=== PATIENT | female | born 1980 | race Hispanic/Latino ===

== ENCOUNTER 2019-03-02 11:00 | Emergency (ER) | payer BC ==
--- OUTSIDE RECORDS SUMMARY | 2019-03-02 11:03 | XMS REPORT ---
:1980 [facility] Address [address] [place] [address] Dr. Najera. [address] [place] [address] Care Team Providers Name Role Phone DR JOSE LUIS GALVAN Unavailable Unavailable Problems This patient has no known problems. Allergies, Adverse Reactions, Alerts This patient has no known allergies or adverse reactions. Medications This patient has no known medications. Encounters Start End Encounter Admission Attending Care Care Encounter Date/Time Date/Time Type Type Clinicians Facility Department ID 2017-06-09 2017-06-09 Out[facility] [id number] 04:54:00 07:37:00 JOSE LUIS Results Test Description Test Time Test Comments Text Results Atomic Results Result Comments URINE MONOCLONALFB 2017-06-30 10:18:00 Test Item Value Reference Range Comments PREG UR (test code=PGU) NEGATIVE NEGATIVE
--- NOTE | 2019-03-02 12:21 | RAD REPORT ---
EXAM DESCRIPTION: CT - Head Brain Wo Cont - 03/02/2019 12:13 pm CLINICAL HISTORY: blurry vision, general weakness;Dizziness Headache, blurry vision, drowsiness COMPARISON: <Comparisons> TECHNIQUE: All CT scans are performed using dose optimization technique as appropriate and may inclu de automated exposure control or mA/KV adjustment according to patient size. FINDINGS: No intracranial hemorrhage, hydrocephalus or extra-axial fluid collection.No areas of brai n edema or evidence of midline shift. The paranasal sinuses and mastoids are clear. The calvarium is intact. IMPRESSION: No acute intracranial abnormality.
--- NOTE | 2019-03-02 12:24 | RAD REPORT ---
EXAM DESCRIPTION: RAD - Chest Single View - 03/02/2019 12:17 pm CLINICAL HISTORY: general weakness Chest pain. COMPARISON: <Comparisons> FINDINGS: Portable technique limits examination quality. The lungs are grossly clear. The heart is normal in size. No displaced fractures. IMPRESSION: No acute intrathoracic process suspected.
[2019-03-02] MEDS ORDERED: ONDANSETRON 4 MG/2 ML VIAL ONE (12:51)
[2019-03-02] MEDS ORDERED: ASPIRIN 81 MG CHEWABLE TABLET ONE (12:51)
--- NOTE | 2019-03-02 13:30 | EKG ---
Test Date: 2019-03-02 Test Time: 13:02:48 Service Manager: MICHEL MEASUREMENT RESULTS: Intervals: Rate: 74 IL: 144 QRSD: 80 QT: 378 QTc: 419 [place]: P: 34 IL: 144 QRS: 46 T: 32 INTERPRETIVE STATEMENTS: Normal sinus rhythm Normal ECG Compared to ECG 06/06/2017 12:21:33 No significant changes Electronically Signed On 03-02-19 13:29:26 CDT by Andrea Rae
[2019-03-02 13:34] LABS: Absolute Lymphocytes (CBC) 2.3 K/uL (0.7-4.9); Absolute Monocytes 0.4 K/uL (0.1-1.3); Absolute Neutrophil 6.6 K/uL (1.8-8.0); Basophils % 0.5 % (0-1.3); Eosinophils % 1.7 % (0-4.4); Hematocrit 37.6 % (36.0-45.0); MPV 7.1 fL (7.6-11.3); Monocytes % 4.2 % (3.3-12.3); RBC Red Blood Cell Count 4.61 M/uL (3.86-4.86)
[2019-03-02 13:37] LABS: Protime INR 0.98
[2019-03-02 13:50] LABS: ALT/SGPT 31 U/L (12-78); AST/SGOT 21 U/L (15-37); Albumin 3.4 g/dL (3.4-5.0); Alkaline Phosphatase 99 U/L (45-117); BUN Blood Urea Nitrogen 9 mg/dL (7-18); Bicarbonate 28 mmol/L (21-32); Bilirubin Direct < 0.1 mg/dL (0-0.2); Bilirubin Total 0.2 mg/dL (0.2-1.0); Glucose Level 91 mg/dL (74-106); Magnesium 1.7 mg/dL (1.8-2.4); Potassium 3.3 mmol/L (3.5-5.1); Protein, Total 7.5 g/dL (6.4-8.2); Sodium Level 143 mmol/L (136-145); Troponin (Emerg Dept Use Only) < 0.02 ng/mL (0.0-0.045)
[2019-03-02 13:57] LABS: Urine Blood TRACE (NEG); Urine Glucose NEGATIVE (NEG); Urine Protein NEGATIVE (NEG); Urine Specific Gravity 1.025 (1.005-1.030)
[2019-03-02 14:07] LABS: Urine Bacteria >50 /HPF (<20); Urine Culture Reflex Order REFLEXED; Urine RBC <5 /HPF (NONE SEEN)
--- NOTE | 2019-03-02 14:34 | EDPHYS ---
Physician Documentation [facility] Name: Leana Chawla Age: 38 yrs Sex: Female : 1980 Arrival Date: 03/02/2019 Time: 11:05 Bed 13 Private MD: Unknown, Unknown ED Physician Kapil Choi HPI: 03/02 11:50 This 38 yrs old Female presents to ER via Ambulatory with complaints of cp Blurred Vision, Dizziness. 11:50 The patient presents with dizziness. Onset: The symptoms/episode began/occurred this cp morning. Context: occurred while the patient was driving. 11:50 Associated signs and symptoms: Pertinent positives: headache, nausea, double vision, cp Pertinent negatives: abdominal pain, chest pain, focal weakness, vomiting. Severity of symptoms: in the emergency department the symptoms are unchanged despite home interventions. 11:50 Patient's baseline: Neuro: alert and fully oriented, Motor: left-sided facial droop, cp Ambulation: walks without assistance, Speech: normal, The patient has a previous history of head injury. 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 - Social history:: Smoking status: Patient/guardian denies using tobacco. - Ebola Screening: : Patient negative for fever greater than or equal to 101.5 degrees Fahrenheit, and additional compatible Ebola Virus Disease symptoms. ROS: 12:00 Constitutional: Negative for body aches, chills, fever, poor PO intake. cp 12:00 Eyes: Positive for visual disturbance, Negative for discharge, pain, redness, vision cp loss. 12:00 ENT: Negative for drainage from ear(s), ear pain, sinus congestion, sinus pain, sore throat, difficulty swallowing, difficulty handling secretions. 12:00 Neck: Negative for pain with movement, pain at rest, stiffness, tenderness. 12:00 Cardiovascular: Negative for chest pain, edema, palpitations. 12:00 Respiratory: Negative for cough, shortness of breath, wheezing. 12:00 Abdomen/GI: Positive for nausea, diarrhea, Negative for abdominal pain, vomiting, constipation, black/tarry stool, rectal bleeding. 12:00 Back: Negative for pain at rest, pain with movement. 12:00 : Positive for urinary frequency. 12:00 Skin: Negative for rash. 12:00 Neuro: Positive for dizziness, headache, weakness, Negative for altered mental status, numbness, syncope, tingling. 12:00 All other systems are negative. Exam: 12:05 Constitutional: The patient appears in no acute distress, alert, awake, cp non-diaphoretic, non-toxic, well developed, well nourished. 12:05 Head/Face: Normocephalic, atraumatic. cp 12:05 Eyes: Periorbital structures: appear normal, Pupils: equal, round, and reactive to light and accomodation, Extraocular movements: intact throughout, Conjunctiva: normal, no exudate, no injection, Sclera: no appreciated abnormality, Lids and lashes: appear normal, bilaterally. 12:05 ENT: External ear(s): are unremarkable, Ear canal(s): are normal, clear, TM's: bulging, is not appreciated, bilaterally, dullness, bilaterally, erythema, is not appreciated, bilaterally, Nose: is normal, Mouth: Lips: moist, Oral mucosa: pink and intact, moist, Posterior pharynx: is normal, airway is patent, no erythema, no exudate, Voice: is normal. 12:05 Neck: ROM/movement: is normal, is supple, without pain, no range of motions limitations, no meningismus, no nuchal rigidity. 12:05 Chest/axilla: Inspection: normal, Palpation: is normal, no crepitus, no tenderness. 12:05 Cardiovascular: Rate: normal, Rhythm: regular, Heart sounds: murmur, not appreciated, Edema: is not appreciated, JVD: is not appreciated. 12:05 Respiratory: the patient does not display signs of respiratory distress, Respirations: normal, no use of accessory muscles, no retractions, no splinting, no tachypnea, labored breathing, is not present, Breath sounds: are clear throughout, no decreased breath sounds, no stridor, no wheezing. 12:05 Abdomen/GI: Inspection: abdomen appears normal, Bowel sounds: active, all quadrants, Palpation: abdomen is soft and non-tender, in all quadrants, rebound tenderness, is not appreciated, involuntary guarding, is not appreciated. 12:05 Back: pain, is absent, ROM is normal. 12:05 Skin: no rash present. 12:05 Neuro: Orientation: to person, place \T\ time. Mentation: is normal, Cerebellar function: is grossly normal, Motor: is normal, Sensation: is normal. 13:23 ECG was reviewed by the Attending Physician. cp Vital Signs: 11:15 BP 132 / 100; Pulse 85; Resp 17; Temp 98.2(TE); Pulse Ox 94% on R/A; Weight 77.11 kg rb1 (R); Height 5 ft. 2 in. (157.48 cm) (R); Pain 0/10; 11:54 BP 136 / 98 Supine; Pulse 84; Resp 16; Pulse Ox 96% ; mh5 11:56 BP 141 / 95 Sitting; Pulse 80; Resp 16; Pulse Ox 97% on R/A; mh5 11:58 BP 131 / 95 Standing; Pulse 93; Resp 17; Pulse Ox 100% ; mh5 12:50 BP 133 / 96; Pulse 65; Resp 16; Temp 98.3(O); Pulse Ox 100% on R/A; Pain 0/10; rb1 13:50 BP 128 / 94; Pulse 71; Resp 15; Temp 98.4(O); Pulse Ox 100% on R/A; Pain 0/10; rb1 14:45 BP 136 / 90; Pulse 74; Resp 16; Temp 98.0(O); Pulse Ox 100% on R/A; Pain 0/10; rb1 15:40 BP 127 / 92; Pulse 76; Resp 15; Temp 98.3(O); Pulse Ox 100% on R/A; Pain 0/10; rb1 11:15 Body Mass Index 31.09 (77.11 kg, 157.48 cm) rb1 Visual Acuity: 12:09 Left Eye Visual acuity 20/40, Pupil size 3 mm, ; Right Eye Visual acuity 20/40, Pupil rb1 size 3 mm, ; Without Lenses; MDM: 11:38 Patient medically screened. cp 14:32 Data reviewed: vital signs, nurses notes, lab test result(s), EKG, radiologic studies, cp CT scan, plain films. 14:32 Test interpretation: by ED physician or midlevel provider: ECG, plain radiologic cp studies. Counseling: I had a detailed discussion with the patient and/or guardian regarding: the historical points, exam findings, and any diagnostic results supporting the discharge/admit diagnosis, lab results, radiology results, to return to the emergency department if symptoms worsen or persist or if there are any questions or concerns that arise at home. Response to treatment: the patient's symptoms have mildly improved after treatment, and as a result, I will discharge patient. 03/02 11:53 Order name: Basic Metabolic Panel; Complete Time: 14:08 03/02 14:06 Interpretation: Normal except: K 3.3. 03/02 11:53 Order name: CBC with Diff; Complete Time: 14:08 03/02 11:53 Order name: LFT's; Complete Time: 14:08 03/02 11:53 Order name: Magnesium; Complete Time: 14:08 03/02 11:53 Order name: PT-INR; Complete Time: 14:08 03/02 11:53 Order name: Troponin (emerg Dept Use Only); Complete Time: 14:08 03/02 11:53 Order name: CT Head Brain wo Cont; Complete Time: 12:25 03/02 12:25 Interpretation: Report reviewed. 03/02 11:53 Order name: XRAY Chest (1 view); Complete Time: 12:25 cp 03/02 13:25 Order name: Urine Microscopic Only mh5 03/02 13:53 Order name: Urine Dipstick--Ancillary (enter results); Complete Time: 14:08 ms 03/02 13:53 Order name: Urine --Ancillary (enter results); Complete Time: 14:08 ms 03/02 14:11 Order name: Urine Culture EDMS 03/02 11:38 Order name: Orthostatics; Complete Time: 12:31 cp 03/02 11:38 Order name: Visual Acuity; Complete Time: 16:01 cp 03/02 11:53 Order name: EKG; Complete Time: 11:56 cp 03/02 11:53 Order name: Cardiac monitoring; Complete Time: 14:54 cp 03/02 11:53 Order name: EKG - Nurse/Tech; Complete Time: 14:55 cp 03/02 11:53 Order name: IV Saline Lock; Complete Time: 14:54 cp 03/02 11:53 Order name: Labs collected and sent; Complete Time: 14:54 cp 03/02 11:53 Order name: O2 Per Protocol; Complete Time: 12:31 cp 03/02 11:53 Order name: O2 Sat Monitoring; Complete Time: 12:31 cp 03/02 11:53 Order name: Urine Dipstick-Ancillary (obtain specimen); Complete Time: 13:27 cp 03/02 11:53 Order name: Urine Test (obtain specimen); Complete Time: 13:27 cp EC:23 Rhythm is regular. HI interval is normal. QRS interval is normal. QT interval is cp normal. T waves are Normal. Interpreted by me. Reviewed by me. Administered Medications: 12:35 Drug: Zofran 4 mg Route: IVP; Site: left antecubital; rb1 12:50 Follow up: Response: No adverse reaction; Nausea is decreased rb1 12:37 Drug: Aspirin 81 mg Route: PO; rb1 13:00 Follow up: Response: No adverse reaction rb1 14:40 Drug: Potassium Effervescent Tablet 50 mEq Route: PO; rb1 15:00 Follow up: Response: No adverse reaction rb1 14:40 Drug: Magnesium Sulfate 1 grams Route: IVPB; Infused Over: 1 hrs; Site: left rb1 antecubital; 15:57 Follow up: IV Status: Completed infusion rb1 14:40 Drug: Rocephin 1 grams Route: IV; Rate: bolus; Site: left antecubital; rb1 15:10 Follow up: IV Status: Completed infusion rb1 Disposition: 16:15 Chart complete. 03/03 12:49 Co-signature as Attending Physician, Kapil Choi MD. Disposition: 03/02/19 14:33 Discharged to Home. Impression: Urinary tract infection, site not specified, Weakness, Dizziness and giddiness. - Condition is Stable. - Discharge Instructions: Dizziness, Urinary Tract Infection, Adult, Weakness, [id number]-mr-[id number]. - Prescriptions for Keflex 500 mg Oral Capsule - take 1 capsule by ORAL route every 12 hours for 7 days; 14 capsule. Meclizine 25 mg Oral Tablet - take 1 tablet by ORAL route every 8 hours As needed; 30 tablet. Zofran 4 mg Oral Tablet - take 1 tablet by ORAL route every 12 hours As needed; 20 tablet. - Medication Reconciliation Form, Thank You Letter, Antibiotic Education, Prescription Opioid Use form. - Work release form (03/02/19 16:06). rb1 - Follow up: Private Physician; When: 2 - 3 days; Reason: Recheck today's complaints. - Problem is new. - Symptoms have improved. Signatures: Dispatcher [employer] EDZayra Tompkins RN RN iw Jules Rico PA PA Jsesie Mills RN RN rb1 Kapil Choi MD MD gs Corrections: (The following items were deleted from the chart) 03/02 16:01 11:53 Accucheck Blood Glucose ordered. cp rb1 16:02 14:33 03/02/2019 14:33 Discharged to Home. Impression: Urinary tract infection, site rb1 not specified; Weakness; Dizziness and giddiness. Condition is Stable. Forms are Medication Reconciliation Form, Thank You Letter, Antibiotic Education, Prescription Opioid Use. Follow up: Private Physician; When: 2 - 3 days; Reason: Recheck today's complaints. Problem is new. Symptoms have improved. cp
--- NOTE | 2019-03-02 14:34 | ER ---
Nurse's Notes [facility] Name: Leana Chawla Age: 38 yrs Sex: Female : 1980 Arrival Date: 03/02/2019 Time: 11:05 Bed 13 Private MD: Unknown, Unknown Diagnosis: Urinary tract infection, site not specified;Weakness;Dizziness and giddiness Presentation: 03/02 11:19 Presenting complaint: Patient states: has been feeling disoriented for a few days, also iw feels nauseous, shaky, has to use the bathroom "constantly", diarrhea and urinary frequency, also had an episode of double vision while driving today, also has been forgetting simple things like putting on her makeup (3 days ago) does not sleep well, only gets 30 minutes of sleep, takes zolpidem to help her sleep, also was feeling very emotional today, felt like crying. Transition of care: patient was not received from another setting of care. Onset of symptoms was February 27, 2019. Risk Assessment: Do you want to hurt yourself or someone else? Patient reports no desire to harm self or others. Initial Sepsis Screen: Does the patient meet any 2 criteria? No. Patient's initial sepsis screen is negative. Does the patient have a suspected source of infection? No. Patient's initial sepsis screen is negative. Care prior to arrival: None. 11:19 Method Of Arrival: Ambulatory iw 11:19 Acuity: SHIRA 3 iw Triage Assessment: 11:15 Pain: Denies pain. 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 - Social history:: Smoking status: Patient/guardian denies using tobacco. - Ebola Screening: : Patient negative for fever greater than or equal to 101.5 degrees Fahrenheit, and additional compatible Ebola Virus Disease symptoms. Screenin:15 Abuse screen: Denies threats or abuse. Nutritional screening: No deficits noted. rb1 Tuberculosis screening: No symptoms or risk factors identified. Fall Risk None identified. Assessment: 11:15 General: Appears in no apparent distress. comfortable, Behavior is calm, cooperative, rb1 Denies fever. Neuro: Level of Consciousness is awake, alert, obeys commands, Oriented to person, place, time, situation. Neuro: Reports Double vision. Cardiovascular: Capillary refill < 3 seconds is brisk in bilateral fingers. Respiratory: Airway is patent Respiratory effort is even, unlabored, Respiratory pattern is regular, symmetrical. GI: Reports diarrhea, nausea, since x 3 days. No diarrhea today. : Reports urinary frequency. Derm: Skin is pink, warm \\T\\ dry. 11:15 Reassessment: Pt. reports having a brain injury in the past on the right side of her rb1 head. She was told that the injury would make her be forgetful, be off balance, and have blurred vision. 12:06 Reassessment: Pt. went to CT. rb1 13:00 Reassessment: Patient appears in no apparent distress at this time. Patient and/or rb1 family updated on plan of care and expected duration. Pain level reassessed. Patient is alert, oriented x 3, equal unlabored respirations, skin warm/dry/pink. Pt. is playing on her phone. 14:00 Reassessment: Patient appears in no apparent distress at this time. No changes from rb1 previously documented assessment. 14:53 Reassessment: Discharge pending due to Magnesium infusing. rb1 15:00 Reassessment: Patient appears in no apparent distress at this time. Patient and/or rb1 family updated on plan of care and expected duration. Pain level reassessed. Patient is alert, oriented x 3, equal unlabored respirations, skin warm/dry/pink. Friend at bedside. 15:44 Reassessment: Patient appears in no apparent distress at this time. No changes from rb1 previously documented assessment. Vital Signs: 11:15 BP 132 / 100; Pulse 85; Resp 17; Temp 98.2(TE); Pulse Ox 94% on R/A; Weight 77.11 kg rb1 (R); Height 5 ft. 2 in. (157.48 cm) (R); Pain 0/10; 11:54 BP 136 / 98 Supine; Pulse 84; Resp 16; Pulse Ox 96% ; mh5 11:56 BP 141 / 95 Sitting; Pulse 80; Resp 16; Pulse Ox 97% on R/A; mh5 11:58 BP 131 / 95 Standing; Pulse 93; Resp 17; Pulse Ox 100% ; mh5 12:50 BP 133 / 96; Pulse 65; Resp 16; Temp 98.3(O); Pulse Ox 100% on R/A; Pain 0/10; rb1 13:50 BP 128 / 94; Pulse 71; Resp 15; Temp 98.4(O); Pulse Ox 100% on R/A; Pain 0/10; rb1 14:45 BP 136 / 90; Pulse 74; Resp 16; Temp 98.0(O); Pulse Ox 100% on R/A; Pain 0/10; rb1 15:40 BP 127 / 92; Pulse 76; Resp 15; Temp 98.3(O); Pulse Ox 100% on R/A; Pain 0/10; rb1 11:15 Body Mass Index 31.09 (77.11 kg, 157.48 cm) rb1 Visual Acuity: 12:09 Left Eye Visual acuity 20/40, Pupil size 3 mm, ; Right Eye Visual acuity 20/40, Pupil rb1 size 3 mm, ; Without Lenses; ED Course: 11:05 Patient arrived in ED. ag5 11:05 Unknown, Unknown is Private Physician. ag5 11:15 Patient has correct armband on for positive identification. Bed in low position. Call rb1 light in reach. Side rails up X 1. Pulse ox on. NIBP on. Warm blanket given. 11:15 Arm band placed on right wrist. rb1 11:20 Jessie Pickard, RN is Primary Nurse. rb1 11:23 Triage completed. iw 11:38 Jules Rico PA is PHCP. cp 11:38 aKpil Choi MD is Attending Physician. cp 12:10 CT completed. Patient tolerated procedure well. Patient moved to radiology. bq 12:15 CT Head Brain wo Cont In Process Unspecified. EDMS 12:19 XRAY Chest (1 view) In Process Unspecified. EDMS 13:16 Missed attempt(s): 22 gauge in left antecubital area. mh5 15:57 No provider procedures requiring assistance completed. IV discontinued, intact, rb1 bleeding controlled, No redness/swelling at site. Pressure dressing applied. Administered Medications: 12:35 Drug: Zofran 4 mg Route: IVP; Site: left antecubital; rb1 12:50 Follow up: Response: No adverse reaction; Nausea is decreased rb1 12:37 Drug: Aspirin 81 mg Route: PO; rb1 13:00 Follow up: Response: No adverse reaction rb1 14:40 Drug: Potassium Effervescent Tablet 50 mEq Route: PO; rb1 15:00 Follow up: Response: No adverse reaction rb1 14:40 Drug: Magnesium Sulfate 1 grams Route: IVPB; Infused Over: 1 hrs; Site: left rb1 antecubital; 15:57 Follow up: IV Status: Completed infusion rb1 14:40 Drug: Rocephin 1 grams Route: IV; Rate: bolus; Site: left antecubital; rb1 15:10 Follow up: IV Status: Completed infusion rb1 Outcome: 14:33 Discharge ordered by MD. cp 15:57 Discharged to home ambulatory, with friend. rb1 15:57 Condition: stable 15:57 Discharge instructions given to patient, Instructed on discharge instructions, follow up and referral plans. medication usage, Demonstrated understanding of instructions, follow-up care, medications, Prescriptions given X 3. 16:02 Patient left the ED. rb1 Signatures: Dispatcher [employer] EDMS Helen Eric Irene, Brigette Yang RN, RN RN ss Page, Corey, PA PA cp Barber, Rebecca, RN RN Stephanie Carvajal Ajare ag5 Corrections: (The following items were deleted from the chart) 03/05 10:00 09:59 Addendum: Culture Results: [facility]
[2019-03-02] MEDS ORDERED: CEFTRIAXONE/SWI 1gm 1 GM/10 ML SYR ONE (14:53)
[2019-03-02] MEDS ORDERED: POTASSIUM 25 MEQ EFFERV TAB ONE (14:53)
[2019-03-02] MEDS ORDERED: MAGNESIUM SULFATE 1 gm IVPB 1 GM/100 ML BAG IV ONE (14:53)
== END 2019-03-02 16:02 | disposition home or self-care (01) ==
LOC: ER 11:00
DX: N39.0 Urinary tract infection, site not specified (principal); R53.1 Weakness; R42 Dizziness and giddiness; F41.8 Other specified anxiety disorders; F32.9 Major depressive disorder, single episode, unspecified
CPT/HCPCS: 36415; 70450; 71045; 80048; 80076; 81003; 81015; 81025; 83735; 84484; 85025; 85610; 87077; 87086; 87088; 87186; 93005; 96365; 96368; 96375; 99284; J0696; J2405; J3475

== ENCOUNTER 2019-03-05 12:27 | Emergency (ER) | payer BC ==
--- OUTSIDE RECORDS SUMMARY | 2019-03-05 12:30 | XMS REPORT ---
:1980 [facility] Address [address] [place] [address] Dr. [address]. [address] [place] [address] Care Team Providers Name Role Phone DR JOSE LUIS GALVAN Unavailable Unavailable Problems This patient has no known problems. Allergies, Adverse Reactions, Alerts This patient has no known allergies or adverse reactions. Medications This patient has no known medications. Encounters Start End Encounter Admission Attending Care Care Encounter Date/Time Date/Time Type Type Clinicians Facility Department ID 2017-06-09 2017-06-09 Out[facility] [id number] 04:54:00 07:37:00 JOSE LUIS Results Test Description Test Time Test Comments Text Results Atomic Results Result Comments URINE MONOCLONALFB 2017-06-30 10:18:00 Test Item Value Reference Range Comments PREG UR (test code=PGU) NEGATIVE NEGATIVE
--- NOTE | 2019-03-05 13:19 | EDPHYS ---
Physician Documentation [facility] Name: Leana Chawla Age: 38 yrs Sex: Female : 1980 Arrival Date: 03/05/2019 Time: 12:30 Bed 5 Private MD: ED Physician Jules Ballesteros HPI: 03/05 13:13 This 38 yrs old Female presents to ER via Ambulatory with complaints of calderon Blurred Vision. 13:13 The patient presents with dizziness. Onset: The symptoms/episode began/occurred 5 calderon day(s) ago. Context: occurred. Modifying factors: The symptoms are alleviated by nothing, the symptoms are aggravated by nothing. Associated signs and symptoms: The patient has no apparent associated signs or symptoms. Patient's baseline: Neuro: alert and fully oriented. The patient has experienced a previous episode, last week. 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 - Social history:: Smoking status: Patient/guardian denies using tobacco. - Ebola Screening: : No symptoms or risks identified at this time. - Family history:: not pertinent. ROS: 13:13 Constitutional: Negative for fever, chills, and weight loss, Eyes: Negative for injury, calderon pain, redness, and discharge, ENT: Negative for injury, pain, and discharge, Neck: Negative for injury, pain, and swelling, Cardiovascular: Negative for chest pain, palpitations, and edema, Respiratory: Negative for shortness of breath, cough, wheezing, and pleuritic chest pain, Abdomen/GI: Negative for abdominal pain, nausea, vomiting, diarrhea, and constipation, Back: Negative for injury and pain, : Negative for injury, bleeding, discharge, and swelling, MS/Extremity: Negative for injury and deformity, Skin: Negative for injury, rash, and discoloration, Neuro: Negative for headache, weakness, numbness, tingling, and seizure, Psych: Negative for depression, anxiety, suicide ideation, homicidal ideation, and hallucinations, Allergy/Immunology: Negative for hives, rash, and allergies, Endocrine: Negative for neck swelling, polydipsia, polyuria, polyphagia, and marked weight changes, Hematologic/Lymphatic: Negative for swollen nodes, abnormal bleeding, and unusual bruising. Exam: 13:16 Constitutional: This is a well developed, well nourished patient who is awake, alert, calderon and in no acute distress. Head/Face: Normocephalic, atraumatic. Eyes: Pupils equal round and reactive to light, extra-ocular motions intact. Lids and lashes normal. Conjunctiva and sclera are non-icteric and not injected. Cornea within normal limits. Periorbital areas with no swelling, redness, or edema. ENT: Nares patent. No nasal discharge, no septal abnormalities noted. Tympanic membranes are normal and external auditory canals are clear. Oropharynx with no redness, swelling, or masses, exudates, or evidence of obstruction, uvula midline. Mucous membranes moist. Neck: Trachea midline, no thyromegaly or masses palpated, and no cervical lymphadenopathy. Supple, full range of motion without nuchal rigidity, or vertebral point tenderness. No Meningismus. Chest/axilla: Normal chest wall appearance and motion. Nontender with no deformity. No lesions are appreciated. Cardiovascular: Regular rate and rhythm with a normal S1 and S2. No gallops, murmurs, or rubs. Normal PMI, no JVD. No pulse deficits. Respiratory: Lungs have equal breath sounds bilaterally, clear to auscultation and percussion. No rales, rhonchi or wheezes noted. No increased work of breathing, no retractions or nasal flaring. Abdomen/GI: Soft, non-tender, with normal bowel sounds. No distension or tympany. No guarding or rebound. No evidence of tenderness throughout. Back: No spinal tenderness. No costovertebral tenderness. Full range of motion. Skin: Warm, dry with normal turgor. Normal color with no rashes, no lesions, and no evidence of cellulitis. MS/ Extremity: Pulses equal, no cyanosis. Neurovascular intact. Full, normal range of motion. Neuro: Awake and alert, GCS 15, oriented to person, place, time, and situation. Cranial nerves II-XII grossly intact. Motor strength 5/5 in all extremities. Sensory grossly intact. Cerebellar exam normal. Normal gait. Psych: Awake, alert, with orientation to person, place and time. Behavior, mood, and affect are within normal limits. Vital Signs: 12:35 BP 136 / 96; Pulse 81; Resp 18; Temp 97.5(O); Pulse Ox 97% on R/A; Weight 77.11 kg; hj Height 5 ft. 2 in. (157.48 cm); Pain 0/10; 13:50 BP 127 / 96 Supine; ms 13:50 BP 127 / 94 Sitting; ms 13:50 BP 126 / 90 Standing; ms 12:35 Body Mass Index 31.09 (77.11 kg, 157.48 cm) MDM: 13:04 Patient medically screened. [facility] 13:23 Data reviewed: vital signs, nurses notes, lab test result(s), EKG, radiologic studies. [facility] 03/05 13:30 Order name: EKG; Complete Time: 13:32 [facility] 03/05 13:30 Order name: EKG - Nurse/Tech; Complete Time: 13:37 [facility] 03/05 13:30 Order name: Orthostatics; Complete Time: 13:52 [facility] Administered Medications: No medications were administered Disposition: 03/05/19 13:18 Discharged to Home. Impression: Insomnia, Diplopia - non specific. - Condition is Stable. - Discharge Instructions: Diplopia, Insomnia. - Prescriptions for Restoril 7.5 mg Oral Capsule - take 2 capsule by ORAL route At bedtime As needed; 20 capsule. - Medication Reconciliation Form, Thank You Letter, Antibiotic Education, Prescription Opioid Use form. - Follow up: Private Physician; When: 2 - 3 days; Reason: Recheck today's complaints, Continuance of care, Re-evaluation by your physician. Follow up: Selvin Roth MD; When: 2 - 3 days; Reason: Recheck today's complaints, Re-evaluation by your physician. Follow up: Guanakito Gleason MD; When: 2 - 3 days; Reason: Recheck today's complaints, Re-evaluation by your physician. - Problem is new. - Symptoms have improved. Signatures: Jules Ballesteros MD MD cha Smirch, Shelby, RN RN Ramón Acevedo RN RN la1 Kenton Haynes RN RN Corrections: (The following items were deleted from the chart) 14:06 13:18 03/05/2019 13:18 Discharged to Home. Impression: Insomnia; Diplopia - non ss specific. Condition is Stable. Forms are Medication Reconciliation Form, Thank You Letter, Antibiotic Education, Prescription Opioid Use. Follow up: Private Physician; When: 2 - 3 days; Reason: Recheck today's complaints, Continuance of care, Re-evaluation by your physician. Follow up: Selvin Roth; When: 2 - 3 days; Reason: Recheck today's complaints, Re-evaluation by your physician. Follow up: Guanakito Gleason; When: 2 - 3 days; Reason: Recheck today's complaints, Re-evaluation by your physician. Problem is new. Symptoms have improved. calderon
--- NOTE | 2019-03-05 13:19 | ER ---
Nurse's Notes [facility] Name: Leana Chawla Age: 38 yrs Sex: Female : 1980 Arrival Date: 03/05/2019 Time: 12:30 Bed 5 Private MD: Diagnosis: Insomnia;Diplopia-non specific Presentation: 03/05 12:33 Presenting complaint: Patient states: i dont feel good, i feel disoriented and laurent seen double, this started maybe couple of days ago; i always tired and i cant sleep; denies fever and chills and reports nausea;. Transition of care: patient was not received from another setting of care. Onset of symptoms was March 05, 2019. Risk Assessment: Do you want to hurt yourself or someone else? Patient reports no desire to harm self or others. Initial Sepsis Screen: Does the patient meet any 2 criteria? No. Patient's initial sepsis screen is negative. Does the patient have a suspected source of infection? No. Patient's initial sepsis screen is negative. Care prior to arrival: None. 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 - Social history:: Smoking status: Patient/guardian denies using tobacco. - Ebola Screening: : No symptoms or risks identified at this time. - Family history:: not pertinent. Screenin:06 Abuse screen: Denies threats or abuse. Denies injuries from another. Nutritional la1 screening: No deficits noted. Tuberculosis screening: No symptoms or risk factors identified. Fall Risk None identified. Assessment: 13:05 General: Appears in no apparent distress. Behavior is calm, cooperative. Pain: Denies la1 pain. Neuro: Level of Consciousness is awake, alert, obeys commands, Oriented to person, place, time, situation, Pile Fabric Knitter are equal bilaterally Moves all extremities. Full function Gait is steady, Speech is normal, Facial symmetry appears normal, Pupils are PERRLA. Cardiovascular: Capillary refill < 3 seconds Patient's skin is warm and dry. Respiratory: Airway is patent Respiratory effort is even, unlabored, Respiratory pattern is regular, symmetrical. GI: No signs and/or symptoms were reported involving the gastrointestinal system. : No signs and/or symptoms were reported regarding the genitourinary system. 14:04 Reassessment: Patient appears in no apparent distress at this time. Patient is alert, ss oriented x 3, equal unlabored respirations, skin warm/dry/pink. Patient denies pain at this time. Vital Signs: 12:35 BP 136 / 96; Pulse 81; Resp 18; Temp 97.5(O); Pulse Ox 97% on R/A; Weight 77.11 kg; hj Height 5 ft. 2 in. (157.48 cm); Pain 0/10; 13:50 BP 127 / 96 Supine; ms 13:50 BP 127 / 94 Sitting; ms 13:50 BP 126 / 90 Standing; ms 12:35 Body Mass Index 31.09 (77.11 kg, 157.48 cm) ED Course: 12:30 Patient arrived in ED. rg4 12:34 Triage completed. hj 12:35 Arm band placed on right wrist. hj 12:55 Ramón Acevedo, LYNN is Primary Nurse. la1 13:04 Jules Ballesteros MD is Attending Physician. [facility] 13:06 Bed in low position. Call light in reach. la1 13:17 Selvin Roth MD is Referral Physician. [place] 13:18 Guanakito Gleason MD is Referral Physician. [place]der[place] 13:52 EKG done, by library technician. reviewed by Jules Ballesteros MD. dt2 14:04 No provider procedures requiring assistance completed. Patient did not have IV access ss during this emergency room visit. Administered Medications: No medications were administered Outcome: 13:18 Discharge ordered by . calderon 14:04 Discharged to home ambulatory. ss 14:04 Condition: good 14:04 Discharge instructions given to patient, family, Instructed on discharge instructions, follow up and referral plans. medication usage, Demonstrated understanding of instructions, follow-up care, medications, Prescriptions given X 1. 14:06 Patient left the ED. ss Signatures: Jules Ballesteros MD MD cha Solis, Maria ms Smirch, Shelby, RN RN Ramón Acevedo RN RN la1 Kenton Haynes RN RN Rosmery Mendoza rg4 Laine Ruffin dt2 Corrections: (The following items were deleted from the chart) 12:37 12:35 Pulse 81bpm; Resp 18bpm; Pulse Ox 97% RA; Temp 97.5F Oral; 77.11 kg; Height 5 ft. hj 2 in.; BMI: 31.0; Pain 0/10; hj
--- NOTE | 2019-03-05 16:28 | EKG ---
Test Date: 2019-03-05 Test Time: 13:40:54 Activities Concierge: BOBBY MEASUREMENT RESULTS: Intervals: Rate: 70 GA: 140 QRSD: 80 QT: 404 QTc: 436 [place]: P: 34 GA: 140 QRS: 52 T: 42 INTERPRETIVE STATEMENTS: Normal sinus rhythm Normal ECG Compared to ECG 03/02/2019 13:02:48 No significant changes Electronically Signed On 03-05-19 16:27:19 CDT by Quan Javier
== END 2019-03-05 14:06 | disposition home or self-care (01) ==
LOC: ER 12:27
DX: G47.00 Insomnia, unspecified (principal); H53.2 Diplopia; F41.9 Anxiety disorder, unspecified; F32.9 Major depressive disorder, single episode, unspecified
CPT/HCPCS: 93005; 99283

== ENCOUNTER 2019-05-27 10:19 | Emergency (ER) | payer BC ==
--- OUTSIDE RECORDS SUMMARY | 2019-05-27 10:23 | XMS REPORT ---
:1980 [facility] [address] [place] [address] Dr. [address]era. [address] [place] [address] Care Team Providers Name Role Phone DR JOSE LUIS GALVAN Unavailable Unavailable Problems This patient has no known problems. Allergies, Adverse Reactions, Alerts This patient has no known allergies or adverse reactions. Medications This patient has no known medications. Encounters Start End Encounter Admission Attending Care Care Encounter Date/Time Date/Time Type Type Clinicians Facility Department ID 2017-06-09 2017-06-09 Outpatient CAR [facility]EEFE [facility] [id number] 04:54:00 07:37:00 JOSE LUIS Results Test Description Test Time Test Comments Text Results Atomic Results Result Comments URINE MONOCLONALFB 2017-06-30 10:18:00 Test Item Value Reference Range Comments PREG UR (test code=PGU) NEGATIVE NEGATIVE
--- NOTE | 2019-05-27 11:10 | ER ---
Nurse's Notes [facility] Name: Leana Chawla Age: 39 yrs Sex: Female : 1980 Arrival Date: 05/27/2019 Time: 10:22 Bed 15 Private MD: Diagnosis: Other specified disorders of left external ear Presentation: 05/27 10:24 Presenting complaint: Patient states: "my left ear started bleeding today". Pt denies aa5 ear pain. Transition of care: patient was not received from another setting of care. Onset of symptoms was May 27, 2019. Risk Assessment: Do you want to hurt yourself or someone else? Patient reports no desire to harm self or others. Initial Sepsis Screen: Does the patient meet any 2 criteria? No. Patient's initial sepsis screen is negative. Does the patient have a suspected source of infection? No. Patient's initial sepsis screen is negative. Care prior to arrival: None. 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 - Social history:: Smoking status: Patient/guardian denies using tobacco. - Ebola Screening: : No symptoms or risks identified at this time. Screenin:32 Abuse screen: Denies threats or abuse. Nutritional screening: No deficits noted. la1 Tuberculosis screening: No symptoms or risk factors identified. Fall Risk None identified. Assessment: 10:32 General: Appears in no apparent distress. Behavior is calm, cooperative. Pain: Denies la1 pain. Neuro: Level of Consciousness is awake, alert, obeys commands. Cardiovascular: Patient's skin is warm and dry. Respiratory: Airway is patent Respiratory effort is even, unlabored. GI: No signs and/or symptoms were reported involving the gastrointestinal system. : No signs and/or symptoms were reported regarding the genitourinary system. EENT: Ear canal w/ bleeding noted from left ear. Vital Signs: 10:26 BP 123 / 75; Pulse 64; Resp 16 S; Temp 98.4(TE); Pulse Ox 99% on R/A; Weight 79.38 kg aa5 (R); Height 5 ft. 2 in. (157.48 cm) (R); Pain 0/10; 10:26 Body Mass Index 32.01 (79.38 kg, 157.48 cm) aa5 ED Course: 10:22 Patient arrived in ED. mr 10:24 Arm band placed on. aa5 10:25 Triage completed. aa5 10:30 Joseph Mosley PA is PHCP. [facility] 10:30 Edin Baron MD is Attending Physician. [facility] 10:32 Ramón Acevedo, RN is Primary Nurse. la1 10:33 Patient has correct armband on for positive identification. la1 11:15 No provider procedures requiring assistance completed. Patient did not have IV access la1 during this emergency room visit. Administered Medications: No medications were administered Outcome: 11:09 Discharge ordered by . [facility] 11:16 Discharged to home ambulatory. la1 11:16 Condition: stable 11:16 Discharge instructions given to patient, Instructed on discharge instructions, follow up and referral plans. Demonstrated understanding of instructions, follow-up care. 11:16 Patient left the ED. la1 Signatures: Joseph Mosley PA PA jmm RiveraYina mr ConradKiki RN RN [facility] Ramón Acevedo, LYNN RN la1
--- NOTE | 2019-05-27 11:10 | EDPHYS ---
Physician Documentation [facility] Name: Leana Chawla Age: 39 yrs Sex: Female : 1980 Arrival Date: 05/27/2019 Time: 10:22 Bed 15 Private MD: ED Physician Edin Baron HPI: 05/27 11:02 This 39 yrs old Female presents to ER via Ambulatory with complaints of Ear jmm bleeding. 11:02 The patient presents with drainage, that is bloody. Onset: The symptoms/episode jmm began/occurred today. Modifying factors: The symptoms are alleviated by nothing, the symptoms are aggravated by nothing. Associated signs and symptoms: Pertinent positives: sore throat, Pertinent negatives: fever. This is a 39 year old female that presents to the ED with complaints of blood from the left ear. Denies known injury. Denies ear ache. States she had a sore throat last week that has since resolved. . 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 - Social history:: Smoking status: Patient/guardian denies using tobacco. - Ebola Screening: : No symptoms or risks identified at this time. ROS: 11:02 Constitutional: Negative for fever, chills, and weight loss. jmm 11:02 Cardiovascular: Negative for chest pain, palpitations, and edema, Respiratory: Negative jmm for shortness of breath, cough, wheezing, and pleuritic chest pain. 11:02 ENT: Positive for drainage from ear(s). jmm 11:02 All other systems are negative. Exam: 11:02 Constitutional: This is a well developed, well nourished patient who is awake, alert, jmm and in no acute distress. Head/Face: atraumatic. Eyes: EOMI, no conjunctival erythema appreciated 11:02 Neck: Trachea midline, Supple Chest/axilla: Normal chest wall appearance and motion. Cardiovascular: Regular rate and rhythm. No edema appreciated Respiratory: Normal respirations, no respiratory distress appreciated Abdomen/GI: Non distended, soft Back: Normal ROM Skin: General appearance color normal MS/ Extremity: Moves all extremities, no obvious deformities appreciated, no edema noted to the lower extremities Neuro: Awake and alert, normal gait Psych: Behavior is normal, Mood is normal, Patient is cooperative and pleasant 11:02 ENT: Ear canal(s): bloody discharge, that is minimal, in the left canal, TM's: are normal. Vital Signs: 10:26 BP 123 / 75; Pulse 64; Resp 16 S; Temp 98.4(TE); Pulse Ox 99% on R/A; Weight 79.38 kg aa5 (R); Height 5 ft. 2 in. (157.48 cm) (R); Pain 0/10; 10:26 Body Mass Index 32.01 (79.38 kg, 157.48 cm) aa5 MDM: 11:02 Patient medically screened. [facility] 11:07 Data reviewed: vital signs, nurses notes. Counseling: I had a detailed discussion with karol the patient and/or guardian regarding: the historical points, exam findings, and any diagnostic results supporting the discharge/admit diagnosis, the need for outpatient follow up, to return to the emergency department if symptoms worsen or persist or if there are any questions or concerns that arise at home. ED course: Patient is alert and non toxic in appearance. TM does not appear perforated. I do not suspect OM. Appear due to irritation of the canal. . Administered Medications: No medications were administered Disposition: 15:46 Co-signature as Attending Physician, Edin Baron MD I agree with the assessment and kdr plan of care. Disposition: 05/27/19 11:09 Discharged to Home. Impression: Other specified disorders of left external ear. - Condition is Stable. - Discharge Instructions: Ear Drainage. - Work release form, Medication Reconciliation Form, Thank You Letter, Antibiotic Education, Prescription Opioid Use form. - Follow up: Private Physician; When: 2 - 3 days; Reason: Recheck today's complaints, Continuance of care, Re-evaluation by your physician. Signatures: Edin Baron MD MD kdr Mickail, Joel, PA PA jmm Calderon, Audri RN RN aa5 Ramón Acevedo RN RN la1 Corrections: (The following items were deleted from the chart) 11:16 11:09 05/27/2019 11:09 Discharged to Home. Impression: Other specified disorders of la1 left external ear. Condition is Stable. Forms are Medication Reconciliation Form, Thank You Letter, Antibiotic Education, Prescription Opioid Use. Follow up: Private Physician; When: 2 - 3 days; Reason: Recheck today's complaints, Continuance of care, Re-evaluation by your physician. karol
[2019-05-27 15:41] VITALS: BP 123/75; TEMP 98.4; O2SAT 99
== END 2019-05-27 11:16 | disposition home or self-care (01) ==
LOC: ER 10:19
DX: H61.892 Other specified disorders of left external ear (principal)
CPT/HCPCS: 99281

== ENCOUNTER 2019-12-13 11:40 | Emergency (ER) | payer BC ==
--- OUTSIDE RECORDS SUMMARY | 2019-12-13 11:43 | XMS REPORT ---
:1980 [facility] [address] [place] [address] Dr. [address]era. [address] [place] [address] Care Team Providers Name Role Phone DR JOSE LUIS GALVAN Unavailable Unavailable Problems This patient has no known problems. Allergies, Adverse Reactions, Alerts This patient has no known allergies or adverse reactions. Medications This patient has no known medications. Encounters Start End Encounter Admission Attending Care Care Encounter Date/Time Date/Time Type Type Clinicians Facility Department ID 2017-06-09 2017-06-09 Outpatient CAR [facility]EEFE [facility] [id number] 04:54:00 07:37:00 JOSE LUIS Results Test Description Test Time Test Comments Text Results Atomic Results Result Comments URINE MONOCLONALFB 2017-06-30 10:18:00 Test Item Value Reference Range Comments PREG UR (test code=PGU) NEGATIVE NEGATIVE
[2019-12-13 12:34] LABS: Urine Blood TRACE (NEG); Urine Glucose NEGATIVE (NEG); Urine Protein NEGATIVE (NEG); Urine Specific Gravity 1.025 (1.005-1.030)
[2019-12-13 12:40] LABS: Absolute Lymphocytes (CBC) 2.3 K/uL (0.7-4.9); Basophils % 0.6 % (0-1.3); Hematocrit 39.5 % (36.0-45.0); Lymphocytes % 22.4 % (15.3-44.8); RBC Red Blood Cell Count 4.82 M/uL (3.86-4.86)
[2019-12-13 12:47] LABS: Urine Bacteria <20 /HPF (<20); Urine Culture Reflex Order NOT NEEDED; Urine RBC <5 /HPF (NONE SEEN)
[2019-12-13 12:48] LABS: Urine Urothelial Cells <5 /HPF (NONE SEEN)
[2019-12-13 12:49] LABS: BUN Blood Urea Nitrogen 17 mg/dL (7-18); Bicarbonate 28 mmol/L (21-32); Glucose Level 85 mg/dL (74-106); Lipase 99 U/L (73-393); Potassium 3.2 mmol/L (3.5-5.1); Sodium Level 139 mmol/L (136-145)
[2019-12-13] MEDS ORDERED: NA CHLORIDE 0.9% 1,000 ML ONE (12:54)
[2019-12-13] MEDS ORDERED: KETOROLAC 30 MG/ML INJ ONE (12:54)
--- NOTE | 2019-12-13 14:30 | ER ---
Nurse's Notes [facility] Name: Leana Chawla Age: 39 yrs Sex: Female : 1980 Arrival Date: 12/13/2019 Time: 11:45 Bed 24 Private MD: Diagnosis: Low back pain;Unspecified abdominal pain;Hypokalemia Presentation: 12/12 11:57 Chief complaint: Patient states: 3 weeks has had severe left upper back pain , last iw night radiated to abdomen, +nausea, denies vomiting. Coronavirus screen: Patient denies fever greater than 100.4F, cough, shortness of breath, or difficulty breathing. Proceed with normal triage process. Ebola Screen: Patient negative for fever greater than or equal to 101.5 degrees Fahrenheit, and additional compatible Ebola Virus Disease symptoms Patient denies exposure to infectious person. Patient denies travel to an Ebola-affected area in the 21 days before illness onset. No symptoms or risks identified at this time. Initial Sepsis Screen: Does the patient meet any 2 criteria? No. Patient's initial sepsis screen is negative. Does the patient have a suspected source of infection? No. Patient's initial sepsis screen is negative. Risk Assessment: Do you want to hurt yourself or someone else? Patient reports no desire to harm self or others. 11:57 Method Of Arrival: Ambulatory iw 11:57 Acuity: SHIRA 3 iw 13:10 Onset of symptoms is unknown. 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 iw Historical: - Allergies: 11:59 No Known Allergies; iw - Home Meds: 12:02 baclofen 20 mg Oral tab nightly [Active]; cyclobenzaprine 5 mg Oral tab 1 tab 3 times iw per day [Active]; ergocalciferol (vitamin D2) 400 unit oral tab 1 tab once daily [Active]; escitalopram oxalate 20 mg oral tab 1 tab once daily [Active]; lorazepam 1 mg Oral tab nightly [Active]; levalbuterol HCl inhalation inhalation [Active]; lisinopril 20 mg Oral tab 1 tab once daily [Active]; pramipexole 1 mg oral tab [Active]; Qvar inhalation inhalation [Active]; Tramadol Oral [Active]; Ventolin HFA 90 mcg/actuation Nebulizer HFAA 1 puff every 4 hours [Active]; - PMHx: 11:59 Anxiety; 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 - Social history:: Smoking status: Patient denies any tobacco usage or history of. Screenin:15 Abuse screen: Denies threats or abuse. Nutritional screening: No deficits noted. vc Tuberculosis screening: No symptoms or risk factors identified. Fall Risk None identified. Assessment: 12:15 General: Appears in no apparent distress. uncomfortable, Behavior is calm, cooperative, vc appropriate for age. Pain: Complains of pain in right side of lumbar Pain radiates to RUQ. Neuro: Level of Consciousness is awake, alert, obeys commands, Oriented to person, place, time, situation, Appropriate for age. 12:15 Cardiovascular: Denies chest pain, shortness of breath, Patient's skin is warm and dry. vc Respiratory: Airway is patent Respiratory effort is even, unlabored, Respiratory pattern is regular, symmetrical. GI: No signs and/or symptoms were reported involving the gastrointestinal system. : No signs and/or symptoms were reported regarding the genitourinary system. EENT: No signs and/or symptoms were reported regarding the EENT system. Musculoskeletal: Circulation, motion, and sensation intact. Range of motion: intact in all extremities. 13:15 Reassessment: Patient and/or family updated on plan of care and expected duration. Pain vc level reassessed. Patient is alert, oriented x 3, equal unlabored respirations, skin warm/dry/pink. 14:15 Reassessment: Patient appears in no apparent distress at this time. Patient and/or vc family updated on plan of care and expected duration. Pain level reassessed. Patient is alert, oriented x 3, equal unlabored respirations, skin warm/dry/pink. 14:45 Reassessment: Patient appears in no apparent distress at this time. Patient and/or vc family updated on plan of care and expected duration. Pain level reassessed. Patient is alert, oriented x 3, equal unlabored respirations, skin warm/dry/pink. Patient states feeling better. Patient states symptoms have improved. Vital Signs: 11:57 BP 155 / 110; Pulse 79; Resp 16; Temp 98.8; Pulse Ox 100% on R/A; Weight 81.65 kg; iw Height 5 ft. 2 in. (157.48 cm); Pain 8/10; 12:45 BP 139 / 89; Pulse 79; Pulse Ox 99% on R/A; vc 13:45 BP 145 / 93; Pulse 69; Resp 17; Pulse Ox 99% on R/A; vc 11:57 Body Mass Index 32.92 (81.65 kg, 157.48 cm) ED Course: 11:45 Patient arrived in ED. fj1 11:49 Rocio Booker FNP-C is PHCP. snw 11:49 Edin Baron MD is Attending Physician. snw 11:58 Triage completed. iw 12:02 Patient has correct armband on for positive identification. iw 12:02 Arm band placed on. iw 12:09 Bhargavi Kamara RN is Primary Nurse. vc 12:10 Inserted saline lock: 20 gauge in right antecubital area, using aseptic technique. vc Blood collected. 12:30 Chem 7 Sent. vc 12:30 CBC with Diff Sent. vc 12:30 Lipase Sent. vc 15:09 No provider procedures requiring assistance completed. IV discontinued, intact, vc bleeding controlled, No redness/swelling at site. Pressure dressing applied. Administered Medications: 13:00 Drug: TORadol 30 mg {Note: Given IV per MD.} Route: IM; Site: Other; vc 14:38 Follow up: Response: No adverse reaction vc 13:01 Drug: NS 0.9% 1000 ml Route: IV; Rate: 1 bolus; Site: right antecubital; vc 14:00 Follow up: IV Status: Completed infusion; IV Intake: 1000ml vc 15:16 Drug: Potassium Chloride 40 mEq Route: PO; vc 15:16 Follow up: Response: No adverse reaction; Medication administered at discharge. vc Intake: 14:00 IV: 1000ml; Total: 1000ml. vc Outcome: 14:29 Discharge ordered by MD. snw 15:00 Discharged to home ambulatory. vc 15:00 Condition: good 15:00 Discharge instructions given to patient, Instructed on discharge instructions, follow up and referral plans. medication usage, Demonstrated understanding of instructions, follow-up care, medications. 15:00 Patient left the ED. vc Signatures: Rocio Booker FNP-C FNP-Csnw Zayra Dwyer, RN RN iw Bhargavi Kamara RN RN vc Marcelo Dickey fj1 Corrections: (The following items were deleted from the chart) 12:29 12:29 Inserted saline lock: 20 gauge in right antecubital area, using aseptic vc technique. Blood collected. vc 15:14 15:13 Patient left the ED. vc vc
--- NOTE | 2019-12-13 14:30 | EDPHYS ---
Physician Documentation [facility] Name: Leana Chawla Age: 39 yrs Sex: Female : 1980 Arrival Date: 12/13/2019 Time: 11:45 Bed 24 Private MD: ED Physician Edin Baron HPI: 12/12 15:08 This 39 yrs old Female presents to ER via Ambulatory with complaints of Back snw Pain. 15:08 The patient presents with pain that is acute, with no known mechanism of injury, that snw is chronic. Onset: The symptoms/episode began/occurred gradually. The pain radiates to the anterior aspect of left lateral abdomen and posterior aspect of left lateral abdomen. The problem was sustained from unknown cause. Severity of symptoms: At their worst the symptoms were moderate. The patient has experienced similar episodes in the past. It is unknown whether or not the patient has recently seen a physician. 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 iw Historical: - Allergies: :59 No Known Allergies; iw - Home Meds: 12:02 baclofen 20 mg Oral tab nightly [Active]; cyclobenzaprine 5 mg Oral tab 1 tab 3 times iw per day [Active]; ergocalciferol (vitamin D2) 400 unit oral tab 1 tab once daily [Active]; escitalopram oxalate 20 mg oral tab 1 tab once daily [Active]; lorazepam 1 mg Oral tab nightly [Active]; levalbuterol HCl inhalation inhalation [Active]; lisinopril 20 mg Oral tab 1 tab once daily [Active]; pramipexole 1 mg oral tab [Active]; Qvar inhalation inhalation [Active]; Tramadol Oral [Active]; Ventolin HFA 90 mcg/actuation Nebulizer HFAA 1 puff every 4 hours [Active]; - PMHx: 11:59 Anxiety; 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 - Social history:: Smoking status: Patient denies any tobacco usage or history of. ROS: 15:08 Constitutional: Negative for fever, chills, and weight loss, Eyes: Negative for injury, snw pain, redness, and discharge, ENT: Negative for injury, pain, and discharge, Neck: Negative for injury, pain, and swelling, Cardiovascular: Negative for chest pain, palpitations, and edema, Respiratory: Negative for shortness of breath, cough, wheezing, and pleuritic chest pain, : Negative for injury, bleeding, discharge, and swelling, MS/Extremity: Negative for injury and deformity, Skin: Negative for injury, rash, and discoloration, Neuro: Negative for headache, weakness, numbness, tingling, and seizure. 15:08 Abdomen/GI: Positive for abdominal pain, nausea, of the posterior aspect of left lateral abdomen and anterior aspect of left lateral abdomen. Exam: 15:07 Constitutional: This is a well developed, well nourished patient who is awake, alert, snw and in no acute distress. Head/Face: Normocephalic, atraumatic. Eyes: Pupils equal round and reactive to light, extra-ocular motions intact. Lids and lashes normal. Conjunctiva and sclera are non-icteric and not injected. Cornea within normal limits. Periorbital areas with no swelling, redness, or edema. ENT: Nares patent. No nasal discharge, no septal abnormalities noted. Tympanic membranes are normal and external auditory canals are clear. Oropharynx with no redness, swelling, or masses, exudates, or evidence of obstruction, uvula midline. Mucous membranes moist. Neck: Trachea midline, no thyromegaly or masses palpated, and no cervical lymphadenopathy. Supple, full range of motion without nuchal rigidity, or vertebral point tenderness. No Meningismus. Chest/axilla: Normal chest wall appearance and motion. Nontender with no deformity. No lesions are appreciated. Cardiovascular: Regular rate and rhythm with a normal S1 and S2. No gallops, murmurs, or rubs. Normal PMI, no JVD. No pulse deficits. Respiratory: Lungs have equal breath sounds bilaterally, clear to auscultation and percussion. No rales, rhonchi or wheezes noted. No increased work of breathing, no retractions or nasal flaring. Skin: Warm, dry with normal turgor. Normal color with no rashes, no lesions, and no evidence of cellulitis. MS/ Extremity: Pulses equal, no cyanosis. Neurovascular intact. Full, normal range of motion. Neuro: Awake and alert, GCS 15, oriented to person, place, time, and situation. Cranial nerves II-XII grossly intact. Motor strength 5/5 in all extremities. Sensory grossly intact. Cerebellar exam normal. Normal gait. Psych: Awake, alert, with orientation to person, place and time. Behavior, mood, and affect are within normal limits. 15:07 Abdomen/GI: Inspection: abdomen appears normal, Bowel sounds: normal, Palpation: abdomen is soft and non-tender. 15:07 Back: pain, that is moderate, of the left low back and left mid back, CVA tenderness, is absent, vertebral tenderness, is not appreciated, muscle spasm, is appreciated in the mid back area. Vital Signs: 11:57 BP 155 / 110; Pulse 79; Resp 16; Temp 98.8; Pulse Ox 100% on R/A; Weight 81.65 kg; iw Height 5 ft. 2 in. (157.48 cm); Pain 8/10; 12:45 BP 139 / 89; Pulse 79; Pulse Ox 99% on R/A; vc 13:45 BP 145 / 93; Pulse 69; Resp 17; Pulse Ox 99% on R/A; vc 11:57 Body Mass Index 32.92 (81.65 kg, 157.48 cm) iw MDM: 12:04 Patient medically screened. snw 15:10 Data reviewed: vital signs, nurses notes. Data interpreted: Pulse oximetry: on room air snw is 99 %. Interpretation: normal. Counseling: I had a detailed discussion with the patient and/or guardian regarding: the historical points, exam findings, and any diagnostic results supporting the discharge/admit diagnosis, the presence of at least one elevated blood pressure reading (>120/80) during this emergency department visit, lab results, the need for outpatient follow up, to return to the emergency department if symptoms worsen or persist or if there are any questions or concerns that arise at home. Special discussion: Based on the history and exam findings, there is no indication for further emergent testing or inpatient evaluation. I discussed with the patient/guardian the need to see the primary care provider for further evaluation of the symptoms. 12/12 12:07 Order name: Lipase; Complete Time: 12:57 snw 12/12 12:07 Order name: Urine Microscopic Only; Complete Time: 12:49 snw 12/12 12:07 Order name: CBC with Diff; Complete Time: 12:49 snw 12/12 12:07 Order name: Chem 7; Complete Time: 12:57 snw 12/12 12:31 Order name: Urine Dipstick--Ancillary (enter results) eb 12/12 12:31 Order name: Urine --Ancillary (enter results) eb 12/12 12:07 Order name: Urine Test (obtain specimen); Complete Time: 12:30 snw 12/12 12:35 Order name: Urine --Ancillary; Complete Time: 12:41 EDMS 12/12 12:35 Order name: Urine Dipstick-Ancillary; Complete Time: 12:41 EDMS 12/12 12:57 Order name: DD; Complete Time: 13:35 snw 12/12 12:07 Order name: Urine Dipstick-Ancillary (obtain specimen); Complete Time: 12:30 snw Administered Medications: 13:00 Drug: TORadol 30 mg {Note: Given IV per MD.} Route: IM; Site: Other; vc 14:38 Follow up: Response: No adverse reaction vc 13:01 Drug: NS 0.9% 1000 ml Route: IV; Rate: 1 bolus; Site: right antecubital; vc 14:00 Follow up: IV Status: Completed infusion; IV Intake: 1000ml vc 15:16 Drug: Potassium Chloride 40 mEq Route: PO; vc 15:16 Follow up: Response: No adverse reaction; Medication administered at discharge. vc Disposition: 18:45 Co-signature as Attending Physician, Edin Baron MD I agree with the assessment and kdr plan of care. Disposition: 12/13/19 14:29 Discharged to Home. Impression: Low back pain, Unspecified abdominal pain, Hypokalemia. - Condition is Stable. - Discharge Instructions: Back Pain, Adult, Potassium Content of Foods, Musculoskeletal Pain, Back Injury Prevention, [id number], Rehydration, Adult, Heat Therapy. - Prescriptions for orphenadrine citrate 100 mg Oral Tablet Sustained Release - take 1 tablet by ORAL route 2 times per day As needed; 20 tablet. - Medication Reconciliation Form, Thank You Letter, Antibiotic Education, Prescription Opioid Use form. - Follow up: Emergency Department; When: As needed; Reason: Worsening of condition. Follow up: Private Physician; When: 2 - 3 days; Reason: Recheck today's complaints, Continuance of care, Re-evaluation by your physician. Signatures: Dispatcher [employer] EDMS Edin Baron MD MD kdr Therrien, Shelly, PAULINO-C LEPIDOPTERIST-Hannahw Zayra Dwyer, RN RN iw Bhargavi Kamara RN RN vc Corrections: (The following items were deleted from the chart) 15:13 14:29 12/13/2019 14:29 Discharged to Home. Impression: Low back pain; Unspecified vc abdominal pain; Hypokalemia. Condition is Stable. Forms are Medication Reconciliation Form, Thank You Letter, Antibiotic Education, Prescription Opioid Use. Follow up: Emergency Department; When: As needed; Reason: Worsening of condition. Follow up: Private Physician; When: 2 - 3 days; Reason: Recheck today's complaints, Continuance of care, Re-evaluation by your physician. snw
[2019-12-13] MEDS ORDERED: POTASSIUM CL SA 10 MEQ TAB PO ONE (14:50)
[2019-12-13 15:23] VITALS: TEMP 98.8
[2019-12-13 15:25] VITALS: O2SAT 99
[2019-12-13 15:26] VITALS: BP 145/93
== END 2019-12-13 15:13 | disposition home or self-care (01) ==
LOC: ER 11:40
DX: R10.32 Left lower quadrant pain (principal); E87.6 Hypokalemia; I10 Essential (primary) hypertension; F32.9 Major depressive disorder, single episode, unspecified; F41.9 Anxiety disorder, unspecified
CPT/HCPCS: 85025; 80048; 36415; 81025; 85379; 83690; 96360; 96372; 99283; J7030; 81003; 81015

== ENCOUNTER 2020-11-20 13:15 | Emergency (ER) | payer BC, SELFPAY ==
--- OUTSIDE RECORDS SUMMARY | 2020-11-20 13:17 | XMS REPORT | Continuity of Care Document ---
:1980 Author Organization [facility] t Address [address] [place] [address] Dr. Najera. [address] [place] [address] Care Team Providers Name Role Phone DR MANDY Attending Clinician Unavailable DR MANDY Admitting Clinician Unavailable Problems Condition Condition Condition Status Onset Resolution Last Treating Co mments Source Name Details Category Date Date Treatment Clinician Date Obesity Obesity Problem Active [facility] Insomnia Insomnia Problem [facility] Gastroesop Gastroesop Problem Active [facility] da reflux Reflux Medical disease Disease Group Fatigue Fatigue Problem Active [facility] Unable to Unable to Problem Active [facility] Allergies, Adverse Reactions, Alerts Allergy Allergy Status Severity Reaction(s) Onset Inactive Treating Comm ents Source Name Type Date Date Clinician Zoloft Allergy Active [facility] Cymbalta Allergy Active [facility] Prozac Allergy Active Rash [facility] Viibryd Allergy Active [facility] Social History Smoking Status Start Date Stop Date Source Never Smoker [facility] Medications Ordered Filled Start Stop Current Ordering Indication Dosage Frequency Signature Comments Components Source Medication Medication Date Date Medication? Clinician (SIG) Name Name acetaminoph acetaminoph No acetaminop [facility] en 300 en 300 hen 300 da mg-codeine mg-codeine mg-codeine Medical 30 mg 30 mg 30 mg Group tablet TAKE tablet TAKE tablet 1 TAB BY 1 TAB BY TAKE 1 TAB MOUTH EVERY MOUTH EVERY BY MOUTH 6 HOURS 6 HOURS EVERY 6 NEEDED FOR NEEDED FOR HOURS PAIN DO NOT PAIN DO NOT NEEDED FOR COMBINE COMBINE PAIN DO WITH OTHER WITH OTHER NOT TYLENOL TYLENOL COMBINE PRODUCTS PRODUCTS WITH OTHER TYLENOL PRODUCTS baclofen 10 baclofen 10 No baclofen [facility] mg tablet mg tablet 10 mg da tablet Medical Group baclofen 20 baclofen 20 No baclofen [facility] mg tablet mg tablet 20 mg da TAKE 2 TAKE 2 tablet Medical TABLETS BY TABLETS BY TAKE 2 G roup MOUTH EVERY MOUTH EVERY TABLETS BY NIGHT AT NIGHT AT MOUTH BEDTIME BEDTIME EVERY NIGHT AT BEDTIME buspirone buspirone No buspirone [facility] 15 mg 15 mg 15 mg da tablet Take tablet Take tablet Medical 1 tablet 1 tablet Take 1 Group twice a day twice a day tablet by oral by oral twice a route. route. day by oral route. buspirone buspirone No buspirone [facility] 7.5 mg 7.5 mg 7.5 mg da tablet Take tablet Take tablet Medical 1 tablet 1 tablet Take 1 Group twice a day twice a day tablet by oral by oral twice a route as route as day by needed. needed. oral route as needed. cephalexin cephalexin No cephalexin [facility] 500 mg 500 mg 500 mg da capsule capsule capsule Medica l Group clindamycin clindamycin No clindamyci [facility] HCl 300 mg HCl 300 mg n HCl 300 da capsule capsule mg capsule Med ical TAKE 1 TAKE 1 TAKE 1 Group CAPSULE BY CAPSULE BY CAPSULE BY MOUTH EVERY MOUTH EVERY MOUTH 6 HOURS FOR 6 HOURS FOR EVERY 6 5 DAYS 5 DAYS HOURS FOR 5 DAYS cyclobenzap cyclobenzap No cyclobenza [facility] rine 5 mg rine 5 mg manuelito 5 mg da tablet TAKE tablet TAKE tablet Medical 1 TABLET BY 1 TABLET BY TAKE 1 Group MOUTH THREE MOUTH THREE TABLET BY TIMES A DAY TIMES A DAY MOUTH NEEDED NEEDED THREE FOR 14 DAYS FOR 14 DAYS TIMES A DAY NEEDED FOR 14 DAYS doxycycline doxycycline No doxycyclin [facility] hyclate 100 hyclate 100 e hyclate da mg capsule mg capsule 100 mg M edical capsule Group escitalopra escitalopra No escitalopr [facility] m 20 mg m 20 mg am 20 mg da tablet TAKE tablet TAKE tablet Medical 1 TABLET BY 1 TABLET BY TAKE 1 Group MOUTH EVERY MOUTH EVERY TABLET BY DAY DAY MOUTH EVERY DAY Kavya Kavya No Kavya [facility] 0.35 mg 0.35 mg 0.35 mg da tablet tablet tablet Medical Group hydrocodone hydrocodone No hydrocodon [facility] 5 5 e 5 da mg-acetamin mg-acetamin mg-acetami Medical ophen 300 ophen 300 nophen 300 Group mg tablet mg tablet mg tablet TAKE 1 2 TAKE 1 2 TAKE 1 2 TABLETS BY TABLETS BY TABLETS BY MOUTH EVERY MOUTH EVERY MOUTH 6 HOURS 6 HOURS EVERY 6 NEEDED FOR NEEDED FOR HOURS PAIN PAIN NEEDED FOR PAIN ibuprofen ibuprofen No ibuprofen [facility] 800 mg 800 mg 800 mg da tablet TAKE tablet TAKE tablet Medical 1 TABLET BY 1 TABLET BY TAKE 1 Group MOUTH THREE MOUTH THREE TABLET BY TIMES A DAY TIMES A DAY MOUTH NEEDED NEEDED THREE TIMES A DAY NEEDED levalbutero levalbutero No levalbuter [facility] l HFA 45 l HFA 45 ol HFA 45 da mcg/actuati mcg/actuati mcg/actuat Medical on aerosol on aerosol ion Adán up inhaler inhaler aerosol INHALE 2 INHALE 2 inhaler PUFFS BY PUFFS BY INHALE 2 MOUTH EVERY MOUTH EVERY PUFFS BY 6 HOURS 6 HOURS MOUTH EVERY 6 HOURS lisinopril lisinopril No lisinopril [facility] 20 mg 20 mg 20 mg da tablet TAKE tablet TAKE tablet Medical 1 TABLET BY 1 TABLET BY TAKE 1 Group MOUTH EVERY MOUTH EVERY TABLET BY DAY DAY MOUTH EVERY DAY lorazepam 1 lorazepam 1 No lorazepam [facility] mg tablet mg tablet 1 mg da TAKE 1 TAKE 1 tablet Medical TABLET BY TABLET BY TAKE 1 Adán up MOUTH MOUTH TABLET BY EVERYDAY AT EVERYDAY AT MOUTH BEDTIME BEDTIME EVERYDAY AT BEDTIME meperidine meperidine No meperidine [facility] 50 mg 50 mg 50 mg da tablet tablet tablet Medical Group methylpredn methylpredn No methylpred [facility] isolone 4 isolone 4 nisolone 4 da mg tablets mg tablets mg tablets Medical in a dose in a dose in a dose Group pack TAKE 6 pack TAKE 6 pack TAKE TABLETS ON TABLETS ON 6 TABLETS DAY 1 DAY 1 ON DAY 1 DIRECTED ON DIRECTED ON PACKAGE AND PACKAGE AND DIRECTED DECREASE BY DECREASE BY ON PACKAGE 1 TAB EACH 1 TAB EACH AND DAY FOR A DAY FOR A DECREASE TOTAL OF 6 TOTAL OF 6 BY 1 TAB DAYS DAYS EACH DAY FOR A TOTAL OF 6 DAYS metronidazo metronidazo No metronidaz [facility] le 500 mg le 500 mg ole 500 mg da tablet TAKE tablet TAKE tablet Medical 1 TABLET BY 1 TABLET BY TAKE 1 Group MOUTH EVERY MOUTH EVERY TABLET BY 8 HOURS FOR 8 HOURS FOR MOUTH 7 DAYS 7 DAYS EVERY 8 HOURS FOR 7 DAYS montelukast montelukast No montelukas [facility] 10 mg 10 mg t 10 mg da tablet tablet tablet Medical Group mupirocin 2 mupirocin 2 No mupirocin [facility] % topical % topical 2 % da ointment ointment topical Medi murray APPLY SMALL APPLY SMALL ointment Group AMOUNT TO AMOUNT TO APPLY AFFECTED AFFECTED SMALL AREA TWICE AREA TWICE AMOUNT TO DAILY FOR 5 DAILY FOR 5 AFFECTED DAYS UNTIL DAYS UNTIL AREA TWICE SYMPTOMS SYMPTOMS DAILY FOR BETTER BETTER 5 DAYS UNTIL SYMPTOMS BETTER naproxen naproxen No naproxen [facility] 500 mg 500 mg 500 mg da tablet TAKE tablet TAKE tablet Medical 1 TABLET BY 1 TABLET BY TAKE 1 Group MOUTH TWICE MOUTH TWICE TABLET BY A DAY A DAY MOUTH NEEDED FOR NEEDED FOR TWICE A PAIN AND PAIN AND DAY SWELLING SWELLING NEEDED FOR PAIN AND SWELLING naproxen naproxen No naproxen [facility] sodium ER sodium ER sodium ER da (CR) 375 mg (CR) 375 mg (CR) 375 Medical tablet,exte tablet,exte mg G roup nded nded tablet,ext release 24 release 24 ended hr mphase hr mphase release 24 hr mphase norgestimat norgestimat No norgestima [facility] e-ethinyl e-ethinyl te-ethinyl da estradiol estradiol estradiol Medical 0.18 0.18 0.18 Group mg/0.215mg/ mg/0.215mg/ mg/0.215mg 0.25mg-35 0.25mg-35 /0.25mg-35 mcg(28)tabl mcg(28)tabl mcg(28)tab et et let ondansetron ondansetron No ondansetro [facility] 8 mg 8 mg n 8 mg da disintegrat disintegrat disintegra Medical ing tablet ing tablet ting Adán up DISSOLVE 1 DISSOLVE 1 tablet UNDER UNDER DISSOLVE 1 TONGUE TONGUE UNDER EVERY 8 EVERY 8 TONGUE HOURS FOR 2 HOURS FOR 2 EVERY 8 DAYS DAYS HOURS FOR 2 DAYS orphenadrin orphenadrin No orphenadri [facility] e citrate e citrate ne citrate da ER 100 mg ER 100 mg ER 100 mg Medical tablet,exte tablet,exte tablet,ext Group nded nded ended release release release TAKE 1 TAKE 1 TAKE 1 TABLET BY TABLET BY TABLET BY MOUTH 2 MOUTH 2 MOUTH 2 TIMES PER TIMES PER TIMES PER DAY DAY DAY NEEDED NEEDED NEEDED pramipexole pramipexole No pramipexol [facility] 0.125 mg 0.125 mg e 0.125 mg d a tablet Take tablet Take tablet Medical 4 tablets 4 tablets Take 4 Adán up every day every day tablets by oral by oral every day route at route at by oral bedtime for bedtime for route at 30 days. 30 days. bedtime for 30 days. pramipexole pramipexole No pramipexol [facility] 1 mg tablet 1 mg tablet e 1 mg da TAKE 1 TAKE 1 tablet Medical TABLET BY TABLET BY TAKE 1 Adán up MOUTH EVERY MOUTH EVERY TABLET BY DAY DAY MOUTH EVERY DAY prednisone prednisone No prednisone [facility] 10 mg 10 mg 10 mg da tablet tablet tablet Medical Group prednisone prednisone No prednisone [facility] 20 mg 20 mg 20 mg da tablet tablet tablet Medical Group Qvar Qvar No Qvar [facility] RediHaler RediHaler RediHaler da 80 80 80 Medical mcg/actuati mcg/actuati mcg/actuat Group on HFA on HFA ion HFA breath breath breath activated activated activated aerosol aerosol aerosol TAKE 2 TAKE 2 TAKE 2 PUFFS BY PUFFS BY PUFFS BY MOUTH TWICE MOUTH TWICE MOUTH A DAY A DAY TWICE A DAY spironolact spironolact No spironolac [facility] one 50 mg one 50 mg tone 50 mg da tablet TAKE tablet TAKE tablet Medical 1 TABLET BY 1 TABLET BY TAKE 1 Group MOUTH EVERY MOUTH EVERY TABLET BY DAY DAY MOUTH EVERY DAY sulfamethox sulfamethox No sulfametho [facility] azole 800 azole 800 xazole 800 da mg-trimetho mg-trimetho mg-trimeth Medical prim 160 mg prim 160 mg oprim 160 Group tablet TAKE tablet TAKE mg tablet 1 TABLET BY 1 TABLET BY TAKE 1 MOUTH EVERY MOUTH EVERY TABLET BY 12 HOURS 12 HOURS MOUTH EVERY 12 HOURS temazepam temazepam No temazepam [facility] 30 mg 30 mg 30 mg da capsule capsule capsule Medica l Take 1 Take 1 Take 1 Group capsule capsule capsule every day every day every day by oral by oral by oral route. route. route. tramadol 50 tramadol 50 No tramadol [facility] mg tablet mg tablet 50 mg da TAKE 1 TAKE 1 tablet Medical TABLET BY TABLET BY TAKE 1 Adán up MOUTH EVERY MOUTH EVERY TABLET BY 8 HOURS 8 HOURS MOUTH NEEDED FOR NEEDED FOR EVERY 8 PAIN PAIN HOURS NEEDED FOR PAIN triamcinolo triamcinolo No triamcinol [facility] ne ne one da acetonide acetonide acetonide Medical 0.1 % 0.1 % 0.1 % Group topical topical topical ointment ointment ointment Trintellix Trintellix No Trintellix [facility] 20 mg 20 mg 20 mg da tablet one tablet one tablet one Medical po daily po daily po daily Adán up Vital Signs Vital Name Observation Time Observation Value Comments Source BP Diastolic 2020-09-08 00:00:00 80 mm[Hg] [facility] Height 2020-09-08 00:00:00 62 [in_i] [facility] BMI (Body Mass 2020-09-08 00:00:00 35.1 kg/m2 [facility] Medical Index) Group BP Systolic 2020-09-08 00:00:00 130 mm[Hg] [facility] Body Weight 2020-09-08 00:00:00 192 [lb_av] [facility] Procedures This patient has no known procedures. Encounters Start End Encounter Admission Attending Care Care Encounter Source Date/Time Date/Time Type Type Clinicians Facility Department ID 2020-09-08 2020-09-08 Macario MEREDITH [place] - [id number] [facility] 00:00:00 00:00:00 Discovery lesli Mitchell MD: [address] [facility] - [address], [place] [address] , Ph. 2020-04-03 2020-04-03 Outpatient [facility] [id number] 04:44:00 15:29:00 [facility] 2017-06-30 2017-06-30 [facility] [id number] 04:47:00 07:20:00 [facility] 2017-06-09 2017-06-09 Outpatient [facility] [id number] 04:54:00 07:37:00 [facility] Results Test Description Test Time Test Comments Results Result Comments Source URINE MONOCLONALFB 2017-06-30 10:18:00 Test Item Value Reference Range Interpretation Comme nts PREG UR (test code = PGU) NEGATIVE NEGATIVE
[2020-11-20] MEDS ORDERED: NA CHLORIDE 0.9% 100 ML ONE (15:16)
[2020-11-20 15:20] LABS: Absolute Lymphocytes (CBC) 1.2 K/uL (0.7-4.9); Basophils % 0.4 % (0-1.3); Hematocrit 40.8 % (36.0-45.0); Lymphocytes % 16.2 % (15.3-44.8); MPV 7.3 fL (7.6-11.3); RBC Red Blood Cell Count 4.98 M/uL (3.86-4.86)
[2020-11-20 15:36] LABS: Albumin 4.1 g/dL (3.4-5.0); Bilirubin Total 0.2 mg/dL (0.2-1.0); Potassium 3.8 mmol/L (3.5-5.1); Protein, Total 9.1 g/dL (6.4-8.2)
[2020-11-20 16:00] LABS: SARS-COV-2 RT PCR POSITIVE (NEGATIVE)
--- NOTE | 2020-11-20 16:09 | EDPHYS ---
Physician Documentation [facility] Name: Leana Chawla Age: 40 yrs Sex: Female : 1980 Arrival Date: 11/20/2020 Time: 13:27 Bed 3 Private MD: ED Physician Edin Baron HPI: 11/20 13:37 This 40 yrs old Female presents to ER via Ambulatory with complaints of Sore jmm Throat, Nausea. 13:37 The patient presents to the emergency department with nausea, diarrhea. Onset: The jmm symptoms/episode began/occurred acutely, 3 week(s) ago. Possible causes: unknown. The symptoms are aggravated by food , The symptoms are alleviated by nothing. Associated signs and symptoms: Pertinent positives: chills, sore throat. This is a 40 year old female with a history of htn, depression, asthma that presents to the ED with complaints of diarrhea, nausea, sore throat, chills beginning approx 3 weeks ago. Denies abdominal pain, vomiting. Denies recent travel, abx use. Patient has been exposed to covid. . 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 - Social history:: Smoking status: Patient denies any tobacco usage or history of. ROS: 13:37 Constitutional: Positive for body aches, chills. jmm 13:37 Abdomen/GI: Positive for nausea, diarrhea. 13:37 All other systems are negative. Exam: 13:37 Constitutional: This is a well developed, well nourished patient who is awake, alert, jmm and in no acute distress. Head/Face: atraumatic. Eyes: EOMI, no conjunctival erythema appreciated 13:37 Neck: Trachea midline, Supple Chest/axilla: Normal chest wall appearance and motion. Cardiovascular: Regular rate and rhythm. No edema appreciated Respiratory: Normal respirations, no respiratory distress appreciated Abdomen/GI: Non distended, soft Back: Normal ROM Skin: General appearance color normal MS/ Extremity: Moves all extremities, no obvious deformities appreciated, no edema noted to the lower extremities Neuro: Awake and alert, normal gait Psych: Behavior is normal, Mood is normal, Patient is cooperative and pleasant 13:37 ENT: Posterior pharynx: erythema, that is mild. Vital Signs: 13:33 BP 120 / 90; Pulse 95; Resp 17 S; Temp 97.8(TE); Pulse Ox 99% on R/A; Weight 83.91 kg jd3 (R); Height 5 ft. 2 in. (157.48 cm) (R); Pain 2/10; 15:21 BP 121 / 94; Pulse 96; Resp 18; Pulse Ox 99% on R/A; Pain 0/10; bw 16:48 BP 119 / 88; Pulse 91; Resp 20; Pulse Ox 97% on R/A; bw 13:33 Body Mass Index 33.84 (83.91 kg, 157.48 cm) jd3 MDM: 14:34 Patient medically screened. [facility] 16:07 Data reviewed: vital signs, nurses notes. Counseling: I had a detailed discussion with karol the patient and/or guardian regarding: the historical points, exam findings, and any diagnostic results supporting the discharge/admit diagnosis, lab results, radiology results, the need for outpatient follow up, to return to the emergency department if symptoms worsen or persist or if there are any questions or concerns that arise at home. ED course: Patient is alert and non toxic in appearance in the ED. No signs of resp distress. Abdomen is soft and non tender to palpation. I do not suspect an acute intraabdominal process. patient understood and agrees with the plan of care. . 11/20 13:36 Order name: Strep; Complete Time: 15:12 11/20 14:40 Order name: CBC with Diff; Complete Time: 15:25 [facility] 11/20 14:40 Order name: CMP; Complete Time: 15:49 [facility] 11/20 14:49 Order name: Todd Screen Profile [facility] 11/20 14:40 Order name: Saline Lock; Complete Time: 15:15 [facility] 11/20 14:50 Order name: Todd Screen; Complete Time: 16:26 [facility] 11/20 15:10 Order name: Throat Culture [facility] 11/20 16:00 Order name: COVID-19/FLU A+B; Complete Time: 16:09 EDMS Administered Medications: 15:14 Drug: NS 0.9% 1000 ml Route: IV; Rate: 1 bolus; Site: right antecubital; Disposition: 16:56 Co-signature as Attending Physician, Edin Baron MD I agree with the assessment and kdr plan of care. Disposition: 11/20/20 16:08 Discharged to Home. Impression: Coronavirus infection, unspecified, Diarrhea, unspecified. - Condition is Stable. - Discharge Instructions: Food Choices to Help Relieve Diarrhea, Adult, Diarrhea, Adult, COVID-19. - Prescriptions for ivermectin 3 mg Oral tablet - take 6 tablet by ORAL route as directed one dose now and one dose on day three; 12 tablet. - Medication Reconciliation Form, Thank You Letter, Antibiotic Education, Prescription Opioid Use form. - Follow up: Private Physician; When: 2 - 3 days; Reason: Recheck today's complaints, Continuance of care, Re-evaluation by your physician. Signatures: Dispatcher [employer] [facility] Edin Baron MD MD kdr Mickail, Joel, PA PA jm Zayra Dwyer, RN Jeevan Walker RN RN jBella Stanford RN RN bw Corrections: (The following items were deleted from the chart) 14:53 13:36 CORONAVIRUS+MR.LAB.BRZ ordered. [facility] 14:54 13:37 Influenza Screen (A \T\ B)+BA.LAB.BRZ ordered. [facility] 16:50 16:08 11/20/2020 16:08 Discharged to Home. Impression: Coronavirus infection, bw unspecified; Diarrhea, unspecified. Condition is Stable. Forms are Medication Reconciliation Form, Thank You Letter, Antibiotic Education, Prescription Opioid Use. Follow up: Private Physician; When: 2 - 3 days; Reason: Recheck today's complaints, Continuance of care, Re-evaluation by your physician. karol
--- NOTE | 2020-11-20 16:09 | ER ---
Nurse's Notes [facility] Name: Leana Chawla Age: 40 yrs Sex: Female : 1980 Arrival Date: 11/20/2020 Time: 13:27 Bed 3 Private MD: Diagnosis: Coronavirus infection, unspecified;Diarrhea, unspecified Presentation: 11/20 13:30 Chief complaint: Patient states: "I haven't good for 2 weeks now. with stomach aches, jd3 nausea/vomiting and headaches.". Coronavirus screen: headache, nausea, vomiting. Client presents with at least one sign or symptom that may indicate coronavirus-19. Standard/surgical mask placed on the client. Provider contacted for isolation considerations. Ebola Screen: Patient negative for fever greater than or equal to 101.5 degrees Fahrenheit, and additional compatible Ebola Virus Disease symptoms. Initial Sepsis Screen: Does the patient meet any 2 criteria? No. Patient's initial sepsis screen is negative. Does the patient have a suspected source of infection? No. Patient's initial sepsis screen is negative. Risk Assessment: Do you want to hurt yourself or someone else? Patient reports no desire to harm self or others. Onset of symptoms was November 12, 2020. 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 - Social history:: Smoking status: Patient denies any tobacco usage or history of. Screenin:19 Abuse screen: Denies threats or abuse. Nutritional screening: No deficits noted. bw Tuberculosis screening: No symptoms or risk factors identified. Fall Risk None identified. Assessment: 15:18 General: Appears in no apparent distress. uncomfortable, Behavior is calm, cooperative, bw appropriate for age. Pain: Denies pain. Neuro: No deficits noted. Cardiovascular: No deficits noted. Respiratory: Reports cough that is Airway is patent Respiratory effort is even, unlabored, Breath sounds are clear bilaterally. EENT: Throat is reddened. 16:18 Reassessment: Patient appears in no apparent distress at this time. No changes from previously documented assessment. Patient and/or family updated on plan of care and expected duration. Pain level reassessed. Patient is alert, oriented x 3, equal unlabored respirations, skin warm/dry/pink. Vital Signs: 13:33 BP 120 / 90; Pulse 95; Resp 17 S; Temp 97.8(TE); Pulse Ox 99% on R/A; Weight 83.91 kg jd3 (R); Height 5 ft. 2 in. (157.48 cm) (R); Pain 2/10; 15:21 BP 121 / 94; Pulse 96; Resp 18; Pulse Ox 99% on R/A; Pain 0/10; bw 16:48 BP 119 / 88; Pulse 91; Resp 20; Pulse Ox 97% on R/A; bw 13:33 Body Mass Index 33.84 (83.91 kg, 157.48 cm) jd3 ED Course: 13:27 Patient arrived in ED. am2 13:32 Triage completed. jd3 13:34 Arm band placed on. jd3 14:34 Joseph Mosley PA is PHCP. [facility] 14:34 Edin Baron MD is Attending Physician. [facility] 14:54 Zayra Dwyer, RN is Primary Nurse. iw 15:14 [place] Screen Profile Sent. iw 15:17 Bella Ambrocio, LYNN is Primary Nurse. bw 15:19 Patient has correct armband on for positive identification. Call light in reach. Side bw rails up X 1. Pulse ox on. NIBP on. Warm blanket given. 15:19 No provider procedures requiring assistance completed. Inserted saline lock: 20 gauge bw in right antecubital area, using aseptic technique. Administered Medications: 15:14 Drug: NS 0.9% 1000 ml Route: IV; Rate: 1 bolus; Site: right antecubital; iw Outcome: 16:08 Discharge ordered by . [facility] 16:50 Patient left the ED. bw Signatures: Joseph Mosley PA PA jmm Williams, Irene, RN LYNN iw [place] am2 Jeevan Mckeon RN RN Bella Stanford RN RN
[2020-11-20 22:09] VITALS: TEMP 97.8
[2020-11-20 22:11] VITALS: BP 119/88; O2SAT 97
== END 2020-11-20 16:50 | disposition home or self-care (01) ==
LOC: ER 13:15
DX: U07.1 COVID-19 (principal); I10 Essential (primary) hypertension
CPT/HCPCS: 0240U; 36415; 80053; 85025; 86308; 87070; 87081; 99284